=== PATIENT | female | born 1940 | race African-American/Black ===

== ENCOUNTER 2017-11-13 07:31 | Emergency (ER) | payer OTHER ==
[~2017-11-13] VITALS: Ht 167.6 cm; Wt 70.0 kg
[2017-11-13] MEDS ORDERED: ARAV20 PO (07:40)
[2017-11-13] MEDS ORDERED: SPIR25TA4 PO (07:40)
[2017-11-13] MEDS ORDERED: LOSA25TA3 PO (07:40)
[2017-11-13] MEDS ORDERED: ATOR10TA69 PO (07:40)
[2017-11-13] MEDS ORDERED: GABA-529 PO (07:40)
[2017-11-13] MEDS ORDERED: SODIUM CHLORIDE 0.9% 500 ML IV ONE (08:03)
[2017-11-13 08:28] LABS: HEMATOCRIT. 34.3 % (36.0-48.0); HEMOGLOBIN. 11.4 g/dL (12.0-16.0); MEAN CORPUSCULAR HEMOGLOBIN 28.5 pg (28.0-32.0); MEAN CORPUSCULAR VOLUME 85.9 fL (81.0-99.0); MEAN PLATELET VOLUME 10.3 fl (7.4-10.4); PLATELET 170 x1000/uL (130-400); RED CELL DISTRIBUTION WIDTH 18.9 % (11.6-14.6)
[2017-11-13 08:35] LABS: INR 1.2; PARTIAL THROMBOPLASTIN TIME 26.6 sec (23.4-31.0); PROTHROMBIN TIME 12.7 sec (9.4-11.6)
[2017-11-13 08:37] LABS: CHLORIDE 109 mEq/L (98-107)
[2017-11-13 08:39] LABS: AMMONIA <10 uMol/L (<32)
[2017-11-13 08:43] LABS: TROPONIN I < 0.02 ng/mL (0.00-0.04)
[2017-11-13] MEDS ORDERED: POTASSIUM CHLORIDE 20MEQ TABLET SR PO ONE (08:45)
[2017-11-13 08:46] LABS: PLATELET ESTIMATE NORMAL
[2017-11-13 10:36] VITALS: BP 140/64
== END 2017-11-13 11:12 | disposition short-term general hospital (02) ==
LOC: ER 07:45
DX: R55 Syncope and collapse (principal); D64.9 Anemia, unspecified; C25.9 Malignant neoplasm of pancreas, unspecified; R26.89 Other abnormalities of gait and mobility; I10 Essential (primary) hypertension; E11.9 Type 2 diabetes mellitus without complications; E78.5 Hyperlipidemia, unspecified; R53.1 Weakness; R79.1 Abnormal coagulation profile; Z88.5 Allergy status to narcotic agent; Z88.0 Allergy status to penicillin
CPT/HCPCS: 36415; 70450; 71045; 80053; 82140; 83605; 83690; 83880; 84484; 85025; 85610; 85730; 87040; 93005; 96360; 96361; 99291; J7040